=== PATIENT | female | born 1975 | race Caucasian/White ===

== ENCOUNTER 2021-03-27 03:10 | Emergency (ER) | payer OTHER ==
[~2021-03-27 03:10] MED LIST: IBUPROFEN800 MG PO
[2021-03-27 03:47] LABS: BILIRUBIN NEGATIVE (NEGATIVE); BLOOD 3+ Ery/uL (NEGATIVE); CLARITY HAZY (CLEAR); COLOR YELLOW (YELLOW); GLUCOSE (U) NORMAL (NORMAL); LEUKOCYTES 1+ Leu/uL (NEGATIVE); NITRITE NEGATIVE (NEGATIVE); PROTEIN 2+ mg/dL (NEGATIVE); SPECIFIC GRAVITY >=1.030 (1.001-1.030); UROBILINOGEN 0.2 mg/dL (0.2-1.0)
[2021-03-27 03:47] LABS: BASOPHIL 0.7 % (0-2); EOSINOPHIL 2.7 % (0-5); HCT 44.5 % (37.0-47.0); HGB 14.1 g/dl (12.5-16.0); MCH 28.2 pg (25.0-31.0); MCHC 31.7 g/dL (32.0-36.0); MONOCYTE 4.7 % (0-12); MPV 9.5 fL (6.0-9.5); NRBC 0; PLT 416 K/uL (150-400); WBC 10.9 K/uL (4.0-10.5)
[2021-03-27 03:48] LABS: NEUTROPHIL 54.7 % (41-80)
[2021-03-27 03:54] LABS: BACTERIA 2+; SQUAMOUS EPITHELIAL CELLS 20-50; URINARY RBC TNTC
[2021-03-27 04:12] LABS: ALBUMIN 4.2 g/dL (3.4-5.0); BILIRUBIN - TOTAL 0.5 mg/dL (0.2-1.0); BUN/CREAT RATIO (CALC) 12.3 RATIO; CREATININE 0.65 mg/dL (0.51-0.95); GLOBULIN (CALCULATION) 4.1 g/dL; POTASSIUM 3.9 mmol/L (3.5-5.1); TOTAL PROTEIN 8.3 g/dL (6.4-8.2)
[2021-03-27 06:18] LABS: BILIRUBIN NEGATIVE (NEGATIVE); BLOOD 3+ Ery/uL (NEGATIVE); CLARITY HAZY (CLEAR); COLOR YELLOW (YELLOW); GLUCOSE (U) NORMAL (NORMAL); LEUKOCYTES TRACE Leu/uL (NEGATIVE); NITRITE NEGATIVE (NEGATIVE); PROTEIN 1+ mg/dL (NEGATIVE); SPECIFIC GRAVITY 1.025 (1.001-1.030); UROBILINOGEN 0.2 mg/dL (0.2-1.0); pH 5.5 (5.0-9.0)
[2021-03-27 06:23] LABS: BACTERIA TRACE
[2021-03-27] MEDS ORDERED: FLOMAX 0.4 MG0.4 MG PO (06:55)
[2021-03-27] MEDS ORDERED: OXY-IR 5MG5 MG PO (06:55)
[2021-03-27] MEDS ORDERED: BACTRIM DS TAB1 EAC1 PO (06:55)
== END 2021-03-27 07:19 | disposition home or self-care (01) ==
LOC: FER 03:10
PROVIDERS: Emergency Medicine
DX: N13.2 Hydronephrosis with renal and ureteral calculous obstruction (principal); I10 Essential (primary) hypertension; E11.9 Type 2 diabetes mellitus without complications; F17.200 Nicotine dependence, unspecified, uncomplicated; Z79.84 Long term (current) use of oral hypoglycemic drugs
CPT/HCPCS: 36415; 80053; 81001; 83690; 84702; 85025; J1170; J1885; J2405; J2543; J7030